=== PATIENT | male | born 1985 | race Caucasian/White ===

== ENCOUNTER 2020-12-13 07:00 | Inpatient (IN) | payer OTHER ==
[~2020-12-13] VITALS: Ht 188 cm; Wt 111.1 kg
[2020-12-13 07:06] VITALS: BP 133/86
[2020-12-13] MEDS ORDERED: PRAZOSIN 1 MG CA1 M1 PO (07:11)
[2020-12-13] MEDS ORDERED: LEXAPRO20 MG PO (07:11)
[2020-12-13] MEDS ORDERED: CLONAZEPAM 1 MG1 M1 PO (07:12)
[2020-12-13 07:39] LABS: ABSOLUTE EOSINOPHILS 0.1 thou/uL (0.0-0.7); ABSOLUTE LYMPHOCYTES 1.9 thou/uL (0.8-5.3); ABSOLUTE MONOCYTES 1.4 thou/uL (0.0-1.2); ABSOLUTE NEUTROPHILS 12.7 thou/uL (1.6-8.1); BASOPHILS 0.2 %; EOSINOPHILS 0.9 %; HEMATOCRIT 43.1 % (42.0-52.0); HEMOGLOBIN 14.6 gm/dL (14.0-18.0); LYMPHOCYTES 11.7 %; MCH 31.3 pg (26.0-34.0); MCV 92.1 fL (80.0-100.0); MONOCYTES 8.4 %; MPV 7.5 fl. (7.2-11.1); NUCLEATED RBCS 0 /100WBC; PLATELET COUNT* 191 thou/uL (150-400); POLYS 78.8 %; RBC 4.68 mil/uL (4.50-6.00); RDW-CV 14.2 % (10.5-14.5); WBC 16.1 thou/uL (4.0-11.0)
[2020-12-13 07:41] LABS: ANION GAP 8 mmol/L (7-16); BUN 12 mg/dL (7-18); CHLORIDE 103 mmol/L (98-107); CO2 26 mmol/L (21-32); GLUCOSE 120 mg/dL (70-99); SODIUM 137 mmol/L (136-145)
[2020-12-13 07:52] LABS: APTT 28.4 Seconds (25.0-31.3); INR 1.1; PROTIME 11.9 Seconds (9.20-11.50)
[2020-12-13 07:54] LABS: ALBUMIN 3.6 g/dL (3.4-5.0); ALKALINE PHOSPHATASE 122 U/L (46-116); CK-MB MASS < 0.5 ng/mL (<0.5-3.6); LIPASE 98 U/L (73-393); NT-PRO BRAIN NAT PEPTIDE 97 pg/mL (<300); SGOT 20 U/L (15-37); SGPT 40 U/L (30-65); TOTAL BILIRUBIN 1.7 mg/dL (<0.1-1.0); TOTAL PROTEIN 8.5 g/dL (6.4-8.2)
--- NOTE | 2020-12-13 11:27 | EKG ---
[place] [address] ELECTROCARDIOGRAM REPORT Name: JERRY REAVES Room: [place] [address] ADM IN .R.#: [id number] Admission: 12/13/20 Attend Phys: Alex Katz Discharge: Date of : 83 Date of Service: 12/13/20 0704 Report #: [id number] THIS REPORT FOR: //name// [facility] ED Test Date: 2020-12-13 Test Time: 07:04:22 Pat Name: JERRY REAVES Department: Room: 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1985 Requested By: Robert Alvarado Order Number: [id number] MD: Gabriel Engle Measurements Intervals [place] Rate: 97 P: 24 [place]: 133 QRS: 42 QRSD: 86 T: 1 QT: 314 QTc: 399 Interpretive Statements Sinus rhythm Borderline T abnormalities, anterior leads No previous ECG available for comparison Electronically Signed On 12-13-2020 11:27:42 CDT by Gabriel Engle [email or web address] <ELECTRONICALLY SIGNED> By: Gabriel Engle MD, [facility] 12/13/20 1127 [id number] [id number] Gabriel Engle MD, [facility] /EPI
[2020-12-13 13:46] VITALS: BP 123/74
[2020-12-13 14:26] LABS: CALCIUM 8.7 mg/dL (8.5-10.1); POTASSIUM 3.8 mmol/L (3.5-5.1)
[2020-12-13 14:29] LABS: MAGNESIUM 1.9 mg/dL (1.8-2.4); PHOSPHORUS* 2.9 mg/dL (2.5-4.9)
[2020-12-13 14:40] VITALS: BP 123/74
[2020-12-13 20:15] VITALS: BP 106/79
[2020-12-13 23:44] VITALS: BP 110/77
[2020-12-14 03:50] VITALS: BP 117/79
[2020-12-14 07:30] VITALS: BP 125/81
[2020-12-14 11:32] LABS: ABSOLUTE EOSINOPHILS 0.2 thou/uL (0.0-0.7); ABSOLUTE LYMPHOCYTES 1.2 thou/uL (0.8-5.3); ABSOLUTE MONOCYTES 0.8 thou/uL (0.0-1.2); ABSOLUTE NEUTROPHILS 8.2 thou/uL (1.6-8.1); BASOPHILS 0.4 %; EOSINOPHILS 2.1 %; HEMATOCRIT 35.5 % (42.0-52.0); LYMPHOCYTES 11.7 %; MCH 31.6 pg (26.0-34.0); MCHC 34.5 g/dL (28.0-37.0); MCV 91.5 fL (80.0-100.0); NUCLEATED RBCS 0 /100WBC; PLATELET COUNT* 190 thou/uL (150-400); POLYS 77.8 %; RBC 3.88 mil/uL (4.50-6.00); RDW-CV 13.8 % (10.5-14.5); WBC 10.5 thou/uL (4.0-11.0)
[2020-12-14 11:35] LABS: HEMOGLOBIN 12.3 gm/dL (14.0-18.0)
[2020-12-14 11:43] LABS: ALBUMIN 2.6 g/dL (3.4-5.0); POTASSIUM 3.7 mmol/L (3.5-5.1); TOTAL BILIRUBIN 0.6 mg/dL (<0.1-1.0); TOTAL PROTEIN 7.2 g/dL (6.4-8.2)
[2020-12-14 12:02] VITALS: BP 123/69
[2020-12-14 15:39] VITALS: BP 114/64
[2020-12-14 19:45] VITALS: BP 106/65
[2020-12-14 21:19] VITALS: BP 117/75
[2020-12-15] VITALS (7 sets, daily range): BP systolic 120–144; BP diastolic 66–87
[2020-12-15 04:27] LABS: ABSOLUTE EOSINOPHILS 0.4 thou/uL (0.0-0.7); ABSOLUTE LYMPHOCYTES 1.3 thou/uL (0.8-5.3); ABSOLUTE MONOCYTES 0.8 thou/uL (0.0-1.2); ABSOLUTE NEUTROPHILS 7.4 thou/uL (1.6-8.1); BASOPHILS 0.3 %; EOSINOPHILS 3.7 %; HEMATOCRIT 32.7 % (42.0-52.0); HEMOGLOBIN 11.1 gm/dL (14.0-18.0); LYMPHOCYTES 12.9 %; MCH 31.2 pg (26.0-34.0); MCHC 34.1 g/dL (28.0-37.0); MCV 91.5 fL (80.0-100.0); MONOCYTES 8.5 %; MPV 7.3 fl. (7.2-11.1); NUCLEATED RBCS 0 /100WBC; PLATELET COUNT* 206 thou/uL (150-400); POLYS 74.6 %; RBC 3.57 mil/uL (4.50-6.00); WBC 9.9 thou/uL (4.0-11.0)
[2020-12-15 04:49] LABS: ALBUMIN 2.5 g/dL (3.4-5.0); CALCIUM 7.9 mg/dL (8.5-10.1); CREATININE 0.9 mg/dL (0.6-1.3); POTASSIUM 3.9 mmol/L (3.5-5.1); TOTAL BILIRUBIN 0.6 mg/dL (<0.1-1.0); TOTAL PROTEIN 6.7 g/dL (6.4-8.2)
[2020-12-16] VITALS: BP 116/68
[2020-12-16 04:00] VITALS: BP 124/77
[2020-12-16 08:00] VITALS: BP 123/83
[2020-12-16] MEDS ORDERED: AMOX TR-K CLV1 EAC4 PO (09:44)
[2020-12-16] MEDS ORDERED: IBUPROFEN200 MG PO (09:44)
[2020-12-16] MEDS ORDERED: ROXICODONE15 MG PO (09:44)
[2020-12-16] MEDS ORDERED: ELIQUIS5 M1 PO (09:44)
[2020-12-16] MEDS ORDERED: TYLENOL EXTRA500 MG PO (09:44)
[2020-12-16] MEDS ORDERED: NEURONTIN 300M300 M2 PO (09:44)
[2020-12-16 10:51] VITALS: BP 123/83
[2020-12-18] MEDS ORDERED: NORCO 10-325 T1 EACH PO (09:36)
== END 2020-12-16 16:12 | disposition home or self-care (01) | DRG 177 ==
LOC: M.ERS 07:00 → M.2W 10:00 → M.TBA-ER 10:00 → M.2W 15:00
PROVIDERS: Family Medicine; ADMIT Internal Medicine; ATTEND Internal Medicine
DX: J69.0 Pneumonitis due to inhalation of food and vomit (principal); I26.99 Other pulmonary embolism without acute cor pulmonale; R73.9 Hyperglycemia, unspecified; Z20.822 Contact with and (suspected) exposure to COVID-19; Z80.1 Family history of malignant neoplasm of trachea, bronchus and lung; Z87.820 Personal history of traumatic brain injury; Z98.52 Vasectomy status

== ENCOUNTER 2020-12-30 16:49 | Observation (INO) | payer OTHER ==
[~2020-12-30] VITALS: Ht 188 cm; Wt 117.0 kg
--- NOTE | ~2020-12-30 | EKG ---
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
[~2020-12-30 16:49] MED LIST: AMOX TR-K CLV1 EAC4 PO; CLONAZEPAM 1 MG1 M1 PO; ELIQUIS5 M1 PO; IBUPROFEN200 MG PO; LEXAPRO20 MG PO; NEURONTIN 300M300 M2 PO; NORCO 10-325 T1 EACH PO; PRAZOSIN 1 MG CA1 M1 PO; ROXICODONE15 MG PO; TYLENOL EXTRA500 MG PO
[2020-12-30 16:53] VITALS: BP 131/90
[2020-12-30 17:27] LABS: HEMATOCRIT 38.9 % (42.0-52.0); HEMOGLOBIN 13.1 gm/dL (14.0-18.0); MCH 30.7 pg (26.0-34.0); MCHC 33.7 g/dL (28.0-37.0); MCV 91.3 fL (80.0-100.0); MPV 7.3 fl. (7.2-11.1); NUCLEATED RBCS 0 /100WBC; PLATELET COUNT* 348 thou/uL (150-400); RBC 4.27 mil/uL (4.50-6.00); RDW-CV 14.6 % (10.5-14.5); WBC 9.6 thou/uL (4.0-11.0)
[2020-12-30 17:36] LABS: CREATININE 1.1 mg/dL (0.6-1.3)
[2020-12-30 17:39] LABS: APTT 23.7 Seconds (25.0-31.3); PROTIME 10.6 Seconds (9.20-11.50)
[2020-12-30 17:46] LABS: ALBUMIN 3.5 g/dL (3.4-5.0); TOTAL BILIRUBIN 0.2 mg/dL (<0.1-1.0); TOTAL PROTEIN 7.9 g/dL (6.4-8.2)
[2020-12-30 18:13] LABS: ABSOLUTE BASOPHILS 0.1 thou/uL (0.0-0.2); ABSOLUTE LYMPHOCYTES 2.6 thou/uL (0.8-5.3); ABSOLUTE MONOCYTES 0.6 thou/uL (0.0-1.2); ABSOLUTE NEUTROPHILS 5.4 thou/uL (1.6-8.1)
[2020-12-30 18:14] LABS: ANISOCYTOSIS Occasional; PLATELET ESTIMATE ADEQUATE
[2020-12-30 19:18] LABS: URINE BILIRUBIN NEGATIVE (Negative); URINE BLOOD NEGATIVE (Negative); URINE CLARITY CLEAR; URINE COLOR YELLOW; URINE GLUCOSE-RANDOM NEGATIVE (Negative); URINE KETONES NEGATIVE (Negative); URINE LEUKOCYTES-REFLEX NEGATIVE (Negative); URINE NITRITE-REFLEX NEGATIVE (Negative); URINE PROTEIN NEGATIVE (Negative); URINE SPECIFIC GRAVITY 1.015 (1.005-1.030); URINE UROBILINOGEN 0.2 E.U./dl (0.2-1.0)
[2020-12-30 19:27] LABS: AMP/METHAMP Negative (Negative); BARBITURATES Negative (Negative); BENZODIAZEPINES POSITIVE (Negative); COCAINE Negative (Negative); METHADONE Negative (Negative); OPIATES Negative (Negative); PCP Negative (Negative); THC Negative (Negative)
[2020-12-30 21:41] VITALS: BP 132/85
[2020-12-30 23:33] VITALS: BP 127/82
[2020-12-31 03:53] LABS: HEMATOCRIT 35.6 % (42.0-52.0); HEMOGLOBIN 11.8 gm/dL (14.0-18.0); MCH 30.4 pg (26.0-34.0); MCHC 33.2 g/dL (28.0-37.0); MCV 91.7 fL (80.0-100.0); MPV 6.8 fl. (7.2-11.1); RBC 3.88 mil/uL (4.50-6.00); RDW-CV 14.8 % (10.5-14.5); WBC 8.5 thou/uL (4.0-11.0)
[2020-12-31 03:55] VITALS: BP 133/80
[2020-12-31 04:08] LABS: CALCIUM 9.2 mg/dL (8.5-10.1); CREATININE 0.9 mg/dL (0.6-1.3)
[2020-12-31 07:54] VITALS: BP 110/68
[2020-12-31 11:01] VITALS: BP 110/68
--- NOTE | 2020-12-31 11:15 | NUR ---
Reviewed discharge teaching with patient and ; verbalized understanding. 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 Discharged from unit per with all belongings.
== END 2020-12-31 11:15 | disposition home or self-care (01) ==
LOC: M.ERS 16:49 → M.TBA-ER 19:03 → M.2W 21:35
PROVIDERS: Emergency Medicine Emergency Medical Services; ADMIT Family Medicine; ATTEND Family Medicine
DX: G93.41 Metabolic encephalopathy (principal); Z20.822 Contact with and (suspected) exposure to COVID-19; I26.99 Other pulmonary embolism without acute cor pulmonale; R40.0 Somnolence; J18.9 Pneumonia, unspecified organism; R07.89 Other chest pain; M79.2 Neuralgia and neuritis, unspecified; Z79.899 Other long term (current) drug therapy

== ENCOUNTER 2021-03-10 03:20 | Emergency (ER) | payer OTHER ==
[~2021-03-10] VITALS: Ht 182.9 cm; Wt 113.4 kg
[2021-03-10 03:50] LABS: ABSOLUTE LYMPHOCYTES 0.7 thou/uL (0.8-5.3); ABSOLUTE MONOCYTES 0.2 thou/uL (0.0-1.2); ABSOLUTE NEUTROPHILS 1.2 thou/uL (1.6-8.1); BASOPHILS 0.5 %; EOSINOPHILS 0.3 %; HEMATOCRIT 40.3 % (42.0-52.0); HEMOGLOBIN 14.1 gm/dL (14.0-18.0); LYMPHOCYTES 34.1 %; MCH 30.4 pg (26.0-34.0); MONOCYTES 8.4 %; MPV 7.8 fl. (7.2-11.1); NUCLEATED RBCS 0 /100WBC; PLATELET COUNT* 120 thou/uL (150-400); POLYS 56.7 %; RBC 4.63 mil/uL (4.50-6.00); RDW-CV 14.8 % (10.5-14.5); WBC 2.1 thou/uL (4.0-11.0)
[2021-03-10 04:03] LABS: CALCIUM 7.7 mg/dL (8.5-10.1); CREATININE 1.1 mg/dL (0.6-1.3); POTASSIUM 3.6 mmol/L (3.5-5.1)
[2021-03-10 04:14] LABS: ALBUMIN 3.4 g/dL (3.4-5.0); TOTAL BILIRUBIN 0.3 mg/dL (<0.1-1.0); TOTAL PROTEIN 7.4 g/dL (6.4-8.2)
[2021-03-10] MEDS ORDERED: AUGMENTIN 875-1 EACH PO (04:53)
[2021-03-10] MEDS ORDERED: HYDROCODONE-CH115 ML PO (04:53)
[2021-03-10 05:00] LABS: URINE BILIRUBIN NEGATIVE (Negative); URINE BLOOD NEGATIVE (Negative); URINE CLARITY CLEAR; URINE COLOR YELLOW; URINE GLUCOSE-RANDOM NEGATIVE (Negative); URINE KETONES NEGATIVE (Negative); URINE LEUKOCYTES-REFLEX NEGATIVE (Negative); URINE NITRITE-REFLEX NEGATIVE (Negative); URINE PROTEIN TRACE (Negative); URINE UROBILINOGEN 0.2 E.U./dl (0.2-1.0)
[2021-03-10 05:11] VITALS: BP 137/84
--- NOTE | 2021-03-10 11:42 | EKG ---
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
== END 2021-03-10 05:12 | disposition home or self-care (01) ==
LOC: M.ERS 03:20
PROVIDERS: Emergency Medicine
DX: U07.1 COVID-19 (principal); J12.82 Pneumonia due to coronavirus disease 2019; Z88.6 Allergy status to analgesic agent

== ENCOUNTER 2021-07-27 15:22 | Emergency (ER) | payer OTHER ==
[~2021-07-27] VITALS: Ht 180.3 cm; Wt 113.4 kg
[~2021-07-27 15:22] MED LIST changes: +AUGMENTIN 875-1 EACH PO; +HYDROCODONE-CH115 ML PO
[2021-07-27] MEDS ORDERED: PROAIR HFA8.5 GM INH (15:29)
[2021-07-27 15:46] LABS: ABSOLUTE BASOPHILS 0.1 thou/uL (0.0-0.2); ABSOLUTE EOSINOPHILS 0.1 thou/uL (0.0-0.7); ABSOLUTE LYMPHOCYTES 1.9 thou/uL (0.8-5.3); ABSOLUTE MONOCYTES 0.4 thou/uL (0.0-1.2); ABSOLUTE NEUTROPHILS 2.9 thou/uL (1.6-8.1); EOSINOPHILS 2.1 %; HEMATOCRIT 43.5 % (42.0-52.0); HEMOGLOBIN 15.1 gm/dL (14.0-18.0); LYMPHOCYTES 35.2 %; MCH 31.9 pg (26.0-34.0); MCHC 34.6 g/dL (28.0-37.0); MCV 92.3 fL (80.0-100.0); MONOCYTES 6.8 %; MPV 7.8 fl. (7.2-11.1); NUCLEATED RBCS 0 /100WBC; PLATELET COUNT* 190 thou/uL (150-400); POLYS 54.9 %; RBC 4.72 mil/uL (4.50-6.00); RDW-CV 14.1 % (10.5-14.5); WBC 5.4 thou/uL (4.0-11.0)
[2021-07-27 15:51] LABS: CALCIUM 8.8 mg/dL (8.5-10.1); POTASSIUM 3.7 mmol/L (3.5-5.1)
[2021-07-27 17:23] VITALS: BP 130/80
== END 2021-07-27 17:24 | disposition home or self-care (01) ==
LOC: M.ERS 15:22
PROVIDERS: Emergency Medicine
DX: R07.89 Other chest pain (principal); Z98.890 Other specified postprocedural states; Z79.899 Other long term (current) drug therapy; Z88.5 Allergy status to narcotic agent